=== PATIENT | female | born 1950 | race Caucasian/White ===

== ENCOUNTER 2023-11-19 17:57 | Outpatient (RCR) | payer MEDICARE, OTHER, SELFPAY | END 2023-11-19 23:59 | disposition home or self-care (01) | LOC: RPT 17:57 | PROVIDERS: ATTENDING PHYSICIAN Family Medicine | DX: N39.3 Stress incontinence (female) (male) (principal); N39.41 Urge incontinence; M62.89 Other specified disorders of muscle | CPT/HCPCS: 97014; 97110; 97112; 97140; 97530 ==

== ENCOUNTER 2023-12-03 18:15 | Outpatient (RCR) | payer MEDICARE, OTHER, SELFPAY | END 2023-12-03 23:59 | disposition home or self-care (01) | LOC: RPT 18:15 | PROVIDERS: ATTENDING PHYSICIAN Family Medicine | DX: N39.3 Stress incontinence (female) (male) (principal); N39.41 Urge incontinence; M62.89 Other specified disorders of muscle; Z73.6 Limitation of activities due to disability | CPT/HCPCS: 97014; 97110; 97112; 97530 ==

== ENCOUNTER 2024-01-07 17:49 | Outpatient (RCR) | payer MEDICARE, OTHER, SELFPAY | END 2024-01-07 23:59 | disposition home or self-care (01) | LOC: RPT 17:49 | PROVIDERS: ATTENDING PHYSICIAN Family Medicine | DX: N39.3 Stress incontinence (female) (male) (principal); N39.41 Urge incontinence; M62.89 Other specified disorders of muscle; Z73.6 Limitation of activities due to disability | CPT/HCPCS: 97110; 97112; 97140; 97530 ==

== ENCOUNTER 2024-02-18 17:53 | Outpatient (RCR) | payer MEDICARE, OTHER, SELFPAY | END 2024-02-18 23:59 | disposition home or self-care (01) | LOC: RPT 17:53 | PROVIDERS: ATTENDING PHYSICIAN Family Medicine | DX: N39.3 Stress incontinence (female) (male) (principal); N39.41 Urge incontinence; M62.89 Other specified disorders of muscle; Z73.6 Limitation of activities due to disability | CPT/HCPCS: 97014; 97110; 97112; 97140; 97530 ==

== ENCOUNTER 2024-03-03 18:01 | Outpatient (RCR) | payer MEDICARE, OTHER, SELFPAY | END 2024-03-03 23:59 | disposition home or self-care (01) | LOC: RPT 18:01 | PROVIDERS: ATTENDING PHYSICIAN Family Medicine | DX: N39.3 Stress incontinence (female) (male) (principal); N39.41 Urge incontinence; M62.89 Other specified disorders of muscle; Z73.6 Limitation of activities due to disability | CPT/HCPCS: 97110; 97530 ==

== ENCOUNTER → 2024-03-18 12:59 | Outpatient (REF) | payer MEDICARE, OTHER, SELFPAY | LOC: RAD 12:59 | PROVIDERS: ATTENDING PHYSICIAN Internal Medicine Rheumatology; FAMILY PHYSICIAN Family Medicine | DX: M81.0 Age-related osteoporosis without current pathological fracture (principal); Z13.820 Encounter for screening for osteoporosis | CPT/HCPCS: 77080 ==

== ENCOUNTER 2024-04-21 17:59 | Outpatient (RCR) | payer MEDICARE, OTHER, SELFPAY | END 2024-04-22 07:36 | disposition home or self-care (01) | LOC: RPT 17:59 | PROVIDERS: ATTENDING PHYSICIAN Family Medicine | DX: N39.3 Stress incontinence (female) (male) (principal); N39.41 Urge incontinence; M62.89 Other specified disorders of muscle; Z73.6 Limitation of activities due to disability | CPT/HCPCS: 97110; 97140; 97530 ==

== ENCOUNTER 2025-01-02 10:11 | Emergency (ER) | payer MEDICARE, OTHER, SELFPAY ==
[2025-01-02 10:22] VITALS: BP 137/88
--- NOTE | 2025-01-02 12:38 | ED.MUSCINJ ---
HPI-Injury
General
Chief Complaint: Fall
Source: patient
Exam Limitations: none
Time Seen by Provider: 01/02/25 12:37
Nursing documentation reviewed up to this point in time: agreed with
History of Present Illness-Injury
Initial Injury comments:
74-year-old female with history of HLD, hypothyroid, states she fell on her treadmill at home yesterday. She struck the right side of her forehead and has a mild bruise there, she struck her nose and has some redness on the left side of her nose,
denies much pain there, she has a moderate size brush burn in the right posterior shoulder and a mild abrasion of her right knee. She has been able walk with no significant pain in the legs. She has full range of motion of her arms with no
significant bony pain. She denies loss of consciousness. She denies N/V. She denies abdominal pain. Her neck is sore.
She is not anticoagulated. She denies headache. She was reading today and noted that her right eye had blurry vision that she has not noticed before. She saw an chart calculator 6 months ago and has relatively recent new eyeglasses. She denies
diplopia.
Past History
Past History
ED Past Medical History: Hypercholesterolemia, Hypothyroidism and Other (GI bleed)
ED Past Surgical History: Tonsilectomy and Other (Rhinoplasty. Thymoma removal)
Social History
Tobacco: Former smoker
Alcohol: Occasional
Drug: None
Personal:
Living: with family
Family History
Family History: Other (Mother with aortic dissection cancer, father with pancreatic cancer, grandmother with colon cancer)
Review of Systems
Review of Systems
Allergies reviewed?: Yes
All Other Systems: ROS reviewed and negative except as documented in HPI and ROS
Constitutional: Denies fatigue
EENT: Reports other (Small bruise right forehead)
Respiratory: Denies trouble breathing
Cardiac: Denies chest pain
ABD/GI: Denies abdominal pain, nausea or vomiting
Musculoskeletal: Reports neck pain ('soreness' ); Denies back pain
Skin: Reports other (Abrasion back of right shoulder)
Neurological: Reports headache; Denies dizzy, weakness or numbness
Phy Exam
Physical Exam
Physical Exam:
GENERAL: No acute distress. A&Ox3.
CONSTITUTIONAL: Afebrile.
Head: Normocephalic, small area mild old ecchymosis right forehead
EYES: clear, conjunctivae normal, PERRL, Good red reflex bilaterally, Sharp retinal blood vessels. Visual acuity noted.
ENMT: moist mucus membranes, Pharynx nl, TMs normal
RESPIRATORY: Regular respirations, nonlabored, lungs clear.
CARDIOVASCULAR: Regular rate and rhythm, no murmurs, no rubs.
GI: Soft, nontender, normal BS
MUSCULOSKELETAL: Mild tenderness bilateral cervical soft tissues, no spinal bony tenderness. No bony tenderness about the right shoulder, clavicle, scapula. Full range of motion of upper extremities. Moves with ease. Well perfused.
SKIN: Warm, dry, pink, deep, clean abrasion posterior aspect of right shoulder.
PSYCH: Normal mood and affect. Well kept, interactive and appropriate
NEUROLOGIC: Awake, alert and oriented. No focal neurological deficits. Ambulates well with steady
Injury Course
Orders/Labs/Results
Orders:
Orders
01/02/25 11:29
CT Cervical Spine W/o Iv Contr Urgent
Comment:
Reason For Exam: pain upper right shoulder/neck
CT Head W/o Iv Contrast Urgent
Comment:
Reason For Exam: head injury, EVANS, blurry vision
Facial Bones wo Contrast CT [CT Facial Bones W/o Iv Contras] Urgent
Comment:
Reason For Exam: injury to bridge of nose, R eyebrow
01/02/25 12:45
Visual Acuity- Treatment ONCE
MDM/Problems Addressed
Differential Diagnosis Includes:
concussion, fracture vs STI neck, face
MDM/Problems Addressed:
74-year-old female with history of HLD, hypothyroid, states she fell on her treadmill at home yesterday. She struck the right side of her forehead and has a mild bruise there, she struck her nose and has some redness on the left side of her nose,
denies much pain there, she has a moderate size brush burn in the right posterior shoulder and a mild abrasion of her right knee. She has been able walk with no significant pain in the legs. She has full range of motion of her arms with no
significant bony pain. She denies loss of consciousness. She denies N/V. She denies abdominal pain. Her neck is sore.
She is not anticoagulated. She denies headache. She was reading today and noted that her right eye had blurry vision that she has not noticed before. She saw an chart calculator 6 months ago and has relatively recent new eyeglasses. She denies
diplopia.
12:40 PM:
Radiology report read for the following studies:
Head and facial bones CT shows no acute intracranial abnormality. No acute facial bone fracture.
Cervical spine CT: No acute fracture or malalignment, mild DJD
Patient reassured that her imaging shows nothing worrisome.
She states that she is sitting here reading small print the blurry vision in her right eye is improving.
Eye exam unremarkable, visual acuity is normal
Referred to facility practice specialist
No significant injury.
*Critical Care Note
Total Time (30-74mins, 75-104mins- exclusive of procedures): Not Applicable
ED Attending Note
-
Portions of this chart may have been created with voice recognition software.� Occasional wrong word or��sound alike� substitutions may have occurred due to the inherent limitations of voice recognition software.
Discharge Plan
Departure
Patient Disposition: Home (Routine Discharge)
Date of Disposition: 01/02/25
Time of Disposition: 12:55
Patient with high blood pressure during this ER visit?: No
Condition: Good
Discharge Problem:
Fall from slip, trip, or stumble, Contusion of forehead, Abrasion of right shoulder, Acute cervical myofascial strain
Instructions: Whiplash, Head Injury in Adults (DC), Contusion (DC), Skin Abrasions (DC)
Prescriptions:
No Action
simvastatin 20 MG tablet
20 mg PO HS
levothyroxine 100 MCG tablet
100 mcg PO DAILY
Patient Comments:
does not take
L.acidoph,paracasei,B.animalis 1 EACH capsule
1 ea PO DAILY
cholecalciferol (vitamin D3) 2,000 UNITS tablet
2,000 units PO DAILY 0RF
hydrocodone-acetaminophen 1 TABLET tablet
1 - 2 tab PO Q4HPRN PRN (Reason: moderate to severe pain) Qty: 15 0RF
Referrals:
Shobha Fraser, [Family Provider] - As needed
Glenn Amlaraz MD [Active] - Next open appointment
Activity Restrictions/Additional Instructions:
As we discussed, the CAT scan of your head, facial bones and cervical spine showed nothing worrisome.
You may feel more stiff and sore today and for the next couple of days as this is not unusual after a fall.
Tylenol or ibuprofen as needed for pain.
I gave you the name of an facility practice specialist to follow-up with, certainly see him if your blurry vision in the right eye is not completely gone within the next few days
Interventions
Interventions:
*Risk Screen - Suicide Last Done: 01/02/25 10:23
*General Assessment Last Done: 01/02/25 11:22
*Neglect/Abuse Screening Last Done: 01/02/25 10:23
*ED COVID-19 Vaccine History Last Done: 01/02/25 11:22
*Nursing Disposition Last Done: 01/02/25 13:28
ED-Musculoskeletal Assessment Last Done: 01/02/25 11:20
ED- Neurological Assessment Last Done: 01/02/25 11:20
ED-Skin Assessment Last Done: 01/02/25 11:20
Discharge Date and Time
Discharge Date/Time: 01/02/25 13:29
Print Language: ITALIAN
[2025-01-02 13:28] VITALS: BP 125/74
== END 2025-01-02 13:29 | disposition home or self-care (01) ==
LOC: EMR 10:11
PROVIDERS: EMERGENCY PHYSICIAN Student in an Organized Health Care Education/Training Program; FAMILY PHYSICIAN Family Medicine
DX: S00.83XA Contusion of other part of head, initial encounter (principal); S40.211A Abrasion of right shoulder, initial encounter; S80.211A Abrasion, right knee, initial encounter; S16.1XXA Strain of muscle, fascia and tendon at neck level, initial encounter; W01.198A Fall on same level from slipping, tripping and stumbling with subsequent striking against other object, initial encounter; E78.00 Pure hypercholesterolemia, unspecified; E03.9 Hypothyroidism, unspecified; H53.8 Other visual disturbances; Z87.891 Personal history of nicotine dependence
CPT/HCPCS: 99284; 70450; 70486; 72125

== ENCOUNTER → 2025-10-26 07:27 | Outpatient (REF) | payer MEDICARE, OTHER, SELFPAY | LOC: RCS 07:27 | PROVIDERS: ATTENDING PHYSICIAN Internal Medicine; FAMILY PHYSICIAN Family Medicine | DX: I47.10 Supraventricular tachycardia, unspecified (principal); I10 Essential (primary) hypertension; R06.02 Shortness of breath | CPT/HCPCS: 93306 ==